=== PATIENT | male | born 1980 | race Two or more races ===

== ENCOUNTER 2019-02-06 07:51 | Emergency (ER) | payer MEDICAID ==
[~2019-02-06] VITALS: Ht 175.3 cm; Wt 79.5 kg
[~2019-02-06 07:51] MED LIST: ALBU8HFA IH; RISP2 PO
[2019-02-06] MEDS ORDERED: KETOROLAC TROMETHAMINE 30 MG/ML VIAL IVP ONE (08:30)
[2019-02-06] MEDS ORDERED: ACETAMINOPHEN 500 MG TABLET PO ONE (08:30)
[2019-02-06] MEDS ORDERED: LIDOCAINE 5% TRANSDERMAL PATCH TD ONE (08:30)
[2019-02-06] MEDS ORDERED: CYCLOBENZAPRINE HCL 10 MG TABLET PO ONE (08:30)
[2019-02-06 09:29] VITALS: BP 126/64
== END 2019-02-06 09:34 | disposition home or self-care (01) ==
LOC: EMS 07:52
DX: M54.5 Low back pain (principal); F17.210 Nicotine dependence, cigarettes, uncomplicated; Z91.018 Allergy to other foods
CPT/HCPCS: 96374; 99284; J1885